=== PATIENT | male | born 1980 | race Caucasian/White ===

== ENCOUNTER 2019-05-31 19:39 | Emergency (ER) | payer SELFPAY ==
[2019-05-31] MEDS ORDERED: WATER FOR INJ,STERILE 10 ML ONE (20:58)
[2019-05-31] MEDS ORDERED: AZITHROMYCIN 250 MG TAB ONE (20:58)
[2019-05-31] MEDS ORDERED: CEFTRIAXONE 1000 MG/VIAL ONE (20:58)
--- NOTE | 2019-05-31 21:41 | ER ---
Nurse's Notes [facility] Name: Homero Macias Age: 38 yrs Sex: Male : 1980 Arrival Date: 05/31/2019 Time: 19:42 Bed 16 Private MD: Diagnosis: Tobacco abuse counseling;Tobacco use;Bronchitis, not specified as acute or chronic;Type 2 diabetes mellitus Presentation: 05/31 20:27 Presenting complaint: Patient states: He has had a cough for the past 3 weeks and he aj1 hasn't been getting better, patient states that he has seen blood in his sputum for the past 2 weeks. Denies fever. Transition of care: patient was not received from another setting of care. Onset of symptoms was May 2019. Risk Assessment: Do you want to hurt yourself or someone else? Patient reports no desire to harm self or others. Initial Sepsis Screen: Does the patient meet any 2 criteria? No. Patient's initial sepsis screen is negative. Does the patient have a suspected source of infection? Yes: Productive cough/pneumonia. Care prior to arrival: None. 20:27 Method Of Arrival: Ambulatory aj 20:27 Acuity: KAMRYN 3 aj1 Triage Assessment: 20:31 General: Appears in no apparent distress. uncomfortable, Behavior is calm, cooperative, aj1 appropriate for age. Pain: Pain currently is 5 out of 10 on a pain scale. Neuro: Level of Consciousness is awake, alert, obeys commands. Cardiovascular: Patient's skin is warm and dry. Respiratory: Airway is patent Respiratory effort is even, unlabored, Respiratory pattern is regular, symmetrical. 21:00 GI: Reports vomiting. rv Historical: - Allergies: 20:31 No Known Allergies; aj1 - Home Meds: 20:31 None [Active]; aj1 - PMHx: 20:31 Diabetes - NIDDM; aj1 - PSHx: 20:31 t1- t3 surgery; plates in ankles; Knee surgery; aj1 - Immunization history:: Flu vaccine is not up to date. - Coronavirus screen:: The patient has NOT traveled to [place], [place], or [place] in the past 14 days. - Social history:: Smoking status: Patient reports the use of cigarette tobacco products, smokes three packs cigarettes per day. - Family history:: not pertinent. - Ebola Screening: : Patient denies travel to an Ebola-affected area in the 21 days before illness onset. Screenin:00 Abuse screen: Denies threats or abuse. Denies injuries from another. Nutritional rv screening: No deficits noted. Tuberculosis screening: No symptoms or risk factors identified. Fall Risk None identified. Assessment: 20:59 General: Appears in no apparent distress. comfortable, Behavior is calm, cooperative. rv Pain: Denies pain. Neuro: Level of Consciousness is awake, alert, obeys commands, Oriented to person, place, time, situation. Cardiovascular: Patient's skin is warm and dry. Respiratory: Airway is patent. GI: Abdomen is flat. Derm: Skin is intact. Vital Signs: 20:31 BP 115 / 80; Pulse 81; Resp 18; Temp 98.3(TE); Pulse Ox 98% on R/A; Weight 124.74 kg; aj1 Height 5 ft. 10 in. (177.80 cm); Pain 5/10; 21:00 BP 121 / 81; Pulse 79; Resp 16; Pulse Ox 97% on R/A; rv 21:54 BP 116 / 76; Pulse 75; Resp 15; Pulse Ox 98% on R/A; rv 20:31 Body Mass Index 39.46 (124.74 kg, 177.80 cm) aj1 ED Course: 19:42 Patient arrived in ED. jg7 20:07 Patient's name was called from ER lobby. No response. aj1 20:30 Triage completed. aj1 20:31 Arm band placed on Patient placed in an exam room. aj1 20:36 Nav Pringle MD is Attending Physician. tobi 20:45 Bob Durant RN is Primary Nurse. rv 21:01 Patient has correct armband on for positive identification. Pulse ox on. NIBP on. rv 21:40 Kwame Maza MD is Referral Physician. tobi 21:44 Chest Pa And Lat (2 Views) XRAY In Process Unspecified. EDMS 21:55 No provider procedures requiring assistance completed. Patient did not have IV access rv during this emergency room visit. Administered Medications: 21:15 Drug: Zithromax 500 mg Route: PO; rv 21:54 Follow up: Response: No adverse reaction rv 21:20 Drug: Rocephin (cefTRIAXone) 1 grams Route: IM; Site: left deltoid; rv 21:53 Follow up: Response: No adverse reaction rv Outcome: 21:40 Discharge ordered by . tobi 21:55 Discharged to home ambulatory, with family. rv 21:55 Condition: good 21:55 Discharge instructions given to patient, family, Instructed on discharge instructions, follow up and referral plans. medication usage, Demonstrated understanding of instructions, follow-up care, medications, Prescriptions given X 3. 21:55 Patient left the ED. rv Signatures: Dispatcher [employer] Sophia Laughlin RN RN ajNav Becerra MD MD cha Vicente, Ronaldo, RN RN Vida Ni jg7
--- NOTE | 2019-05-31 21:41 | EDPHYS ---
Physician Documentation [facility] Name: Homero Macias Age: 38 yrs Sex: Male : 1980 Arrival Date: 05/31/2019 Time: 19:42 Bed 16 Private MD: ED Physician Nav Pringle HPI: 05/31 20:45 This 38 yrs old Male presents to ER via Ambulatory with complaints of tobi COUGHING UP BLOOD, Fever, Vomiting. 20:45 The patient reports fever, not measured (subjective). Onset: The symptoms/episode tobi began/occurred 3 day(s) ago. Modifying factors: there are no obvious modifying factors. Associated signs and symptoms: Pertinent positives: cough, hemoptysis, sinus congestion. Severity of symptoms: At their worst the symptoms were mild moderate in the emergency department the symptoms are unchanged. The patient has not experienced similar symptoms in the past. Historical: - Allergies: 20:31 No Known Allergies; aj1 - Home Meds: 20:31 None [Active]; aj1 - PMHx: 20:31 Diabetes - NIDDM; aj1 - PSHx: 20:31 t1- t3 surgery; plates in ankles; Knee surgery; aj1 - Immunization history:: Flu vaccine is not up to date. - Coronavirus screen:: The patient has NOT traveled to [place], [place], or [place] in the past 14 days. - Social history:: Smoking status: Patient reports the use of cigarette tobacco products, smokes three packs cigarettes per day. - Family history:: not pertinent. - Ebola Screening: : Patient denies travel to an Ebola-affected area in the 21 days before illness onset. ROS: 20:45 Constitutional: Negative for fever, chills, and weight loss, Eyes: Negative for injury, tobi pain, redness, and discharge, ENT: Negative for injury, pain, and discharge, Neck: Negative for injury, pain, and swelling, Cardiovascular: Negative for chest pain, palpitations, and edema, Abdomen/GI: Negative for abdominal pain, nausea, vomiting, diarrhea, and constipation, Back: Negative for injury and pain, : Negative for injury, bleeding, discharge, and swelling, MS/Extremity: Negative for injury and deformity, Skin: Negative for injury, rash, and discoloration, Neuro: Negative for headache, weakness, numbness, tingling, and seizure, Psych: Negative for depression, anxiety, suicide ideation, homicidal ideation, and hallucinations, Allergy/Immunology: Negative for hives, rash, and allergies, Endocrine: Negative for neck swelling, polydipsia, polyuria, polyphagia, and marked weight changes, Hematologic/Lymphatic: Negative for swollen nodes, abnormal bleeding, and unusual bruising. 20:45 Respiratory: Positive for cough, with green sputum, hemoptysis. Exam: 20:45 Constitutional: This is a well developed, well nourished patient who is awake, alert, tobi and in no acute distress. Head/Face: Normocephalic, atraumatic. Eyes: Pupils equal round and reactive to light, extra-ocular motions intact. Lids and lashes normal. Conjunctiva and sclera are non-icteric and not injected. Cornea within normal limits. Periorbital areas with no swelling, redness, or edema. ENT: Nares patent. No nasal discharge, no septal abnormalities noted. Tympanic membranes are normal and external auditory canals are clear. Oropharynx with no redness, swelling, or masses, exudates, or evidence of obstruction, uvula midline. Mucous membranes moist. Neck: Trachea midline, no thyromegaly or masses palpated, and no cervical lymphadenopathy. Supple, full range of motion without nuchal rigidity, or vertebral point tenderness. No Meningismus. Chest/axilla: Normal chest wall appearance and motion. Nontender with no deformity. No lesions are appreciated. Cardiovascular: Regular rate and rhythm with a normal S1 and S2. No gallops, murmurs, or rubs. Normal PMI, no JVD. No pulse deficits. Respiratory: Lungs have equal breath sounds bilaterally, clear to auscultation and percussion. No rales, rhonchi or wheezes noted. No increased work of breathing, no retractions or nasal flaring. Abdomen/GI: Soft, non-tender, with normal bowel sounds. No distension or tympany. No guarding or rebound. No evidence of tenderness throughout. Back: No spinal tenderness. No costovertebral tenderness. Full range of motion. Male : Normal genitalia with no discharge or lesions. Skin: Warm, dry with normal turgor. Normal color with no rashes, no lesions, and no evidence of cellulitis. MS/ Extremity: Pulses equal, no cyanosis. Neurovascular intact. Full, normal range of motion. Neuro: Awake and alert, GCS 15, oriented to person, place, time, and situation. Cranial nerves II-XII grossly intact. Motor strength 5/5 in all extremities. Sensory grossly intact. Cerebellar exam normal. Normal gait. Psych: Awake, alert, with orientation to person, place and time. Behavior, mood, and affect are within normal limits. Vital Signs: 20:31 BP 115 / 80; Pulse 81; Resp 18; Temp 98.3(TE); Pulse Ox 98% on R/A; Weight 124.74 kg; aj1 Height 5 ft. 10 in. (177.80 cm); Pain 5/10; 21:00 BP 121 / 81; Pulse 79; Resp 16; Pulse Ox 97% on R/A; rv 21:54 BP 116 / 76; Pulse 75; Resp 15; Pulse Ox 98% on R/A; rv 20:31 Body Mass Index 39.46 (124.74 kg, 177.80 cm) aj1 MDM: 20:36 Patient medically screened. [facility] 20:47 Data reviewed: vital signs, nurses notes, radiologic studies. [facility] 05/31 21:04 Order name: Glucose, Ancillary Testing; Complete Time: 21:28 EDRI 05/31 21:29 Interpretation: Abnormal. [facility] 05/31 20:45 Order name: Chest Pa And Lat (2 Views) XRAY [facility] 05/31 20:45 Order name: Blood Glucose Level; Complete Time: 20:51 tobi Administered Medications: 21:15 Drug: Zithromax 500 mg Route: PO; rv 21:54 Follow up: Response: No adverse reaction rv 21:20 Drug: Rocephin (cefTRIAXone) 1 grams Route: IM; Site: left deltoid; rv 21:53 Follow up: Response: No adverse reaction rv Disposition: 05/31/19 21:40 Discharged to Home. Impression: Tobacco abuse counseling, Tobacco use, Bronchitis, not specified as acute or chronic, Type 2 diabetes mellitus. - Condition is Stable. - Discharge Instructions: Acute Bronchitis, Adult, Type 2 Diabetes Mellitus, Diagnosis, Adult, How to Use an Inhaler, Steps to Quit Smoking, Smoking Hazards, Upper Respiratory Infection, Adult, Type 2 Diabetes Mellitus, Diagnosis, Adult, [id number]. - Prescriptions for Albuterol Sulfate 90 mcg/actuation - inhale 1-2 puff by INHALATION route every 4-6 hours; 1 Inhaler. Zithromax 500 mg Oral Tablet - take 1 tablet by ORAL route once daily for 5 days; 5 tablet. Pepcid 20 mg Oral Tablet - take 1 tablet by ORAL route every 12 hours for 10 days; 20 tablet. - Medication Reconciliation Form, Thank You Letter, Antibiotic Education, Prescription Opioid Use form. - Follow up: Private Physician; When: 2 - 3 days; Reason: Recheck today's complaints, Continuance of care, Re-evaluation by your physician. Follow up: Kwame Maza; When: 2 - 3 days; Reason: Recheck today's complaints, Continuance of care, Re-evaluation by your physician. - Problem is new. - Symptoms have improved. Signatures: Dispatcher [employer] EDSophia Roman RN RN ajNav Becerra MD MD cha Vicente, Ronaldo, RN RN rv Corrections: (The following items were deleted from the chart) 21:55 21:40 05/31/2019 21:40 Discharged to Home. Impression: Tobacco abuse counseling; rv Tobacco use; Bronchitis, not specified as acute or chronic; Type 2 diabetes mellitus. Condition is Stable. Discharge Instructions: Acute Bronchitis, Adult, How to Use an Inhaler, Steps to Quit Smoking, Smoking Hazards, Upper Respiratory Infection, Adult, Type 2 Diabetes Mellitus, Diagnosis, Adult, Type 2 Diabetes Mellitus, Diagnosis, Adult, [id number]. Prescriptions for Albuterol Sulfate 90 mcg/actuation - inhale 1-2 puff by INHALATION route every 4-6 hours; 1 Inhaler, Zithromax 500 mg Oral Tablet - take 1 tablet by ORAL route once daily for 5 days; 5 tablet. and Forms are Medication Reconciliation Form, Thank You Letter, Antibiotic Education, Prescription Opioid Use. Follow up: Private Physician; When: 2 - 3 days; Reason: Recheck today's complaints, Continuance of care, Re-evaluation by your physician. Follow up: Kwame Maza; When: 2 - 3 days; Reason: Recheck today's complaints, Continuance of care, Re-evaluation by your physician. Problem is new. Symptoms have improved. tobi
[2019-05-31 22:18] VITALS: TEMP 98.3
[2019-05-31 22:19] VITALS: BP 116/76; O2SAT 98
--- NOTE | 2019-06-01 12:43 | RAD REPORT ---
EXAM DESCRIPTION: Lokesh Thakkar And Olegario (2 Views)05/31/2019 9:39 pm CLINICAL HISTORY: Cough COMPARISON: None FINDINGS: The lungs appear clear of acute infiltrate. The heart is normal size IMPRESSION: No acute abnormalities displayed
== END 2019-05-31 21:55 | disposition home or self-care (01) ==
LOC: ER 19:39
DX: J40 Bronchitis, not specified as acute or chronic (principal); E11.9 Type 2 diabetes mellitus without complications; Z72.0 Tobacco use; Z71.6 Tobacco abuse counseling
CPT/HCPCS: 71046; 82947; 96372; 99284

== ENCOUNTER 2022-03-23 18:01 | Emergency (ER) | payer SELFPAY ==
--- NOTE | 2022-03-23 18:28 | EDPHYS ---
Physician Documentation [facility] Name: Homero Macias Age: 41 yrs Sex: Male : 1980 Arrival Date: 03/23/2022 Time: 18:03 Bed 19 Private MD: ED Physician Jonnathan Reyes HPI: 03/23 18:35 This 41 yrs old Male presents to ER via Ambulatory with complaints of Insect Bite, snw Wound Check. 18:35 The patient presents with cellulitis of the medial aspect of left thigh. Description: snw erythematous, tender. Onset: The symptoms/episode began/occurred suddenly, yesterday, and became persistent. Possible cause(s): pt removed tick from area yesterday post hiking the day before. Associated signs and symptoms: Pertinent positives: circular erythema, tender area to left thigh. Severity of symptoms: At their worst the symptoms were moderate. The patient has not experienced similar symptoms in the past. The patient has not recently seen a physician. family with flu-like illness. Historical: - Allergies: 18:12 No Known Allergies; ll1 - PMHx: 18:12 Diabetes - NIDDM; ll1 - PSHx: 18:12 ankle, back, knee SX; ll1 - Immunization history:: Client reports having NOT received the Covid vaccine. - Social history:: Smoking status: Patient reports the use of cigarette tobacco products, smokes one-half pack cigarettes per day. ROS: 18:33 Constitutional: Negative for fever, chills, and weight loss, Eyes: Negative for injury, snw pain, redness, and discharge, ENT: Negative for injury, pain, and discharge, Neck: Negative for injury, pain, and swelling, Cardiovascular: Negative for chest pain, palpitations, and edema, Respiratory: Negative for shortness of breath, cough, wheezing, and pleuritic chest pain, Abdomen/GI: Negative for abdominal pain, nausea, vomiting, diarrhea, and constipation, Back: Negative for injury and pain, : Negative for injury, bleeding, discharge, and swelling, MS/Extremity: Negative for injury and deformity, Neuro: Negative for headache, weakness, numbness, tingling, and seizure, Psych: Negative for depression, anxiety, suicide ideation, homicidal ideation, and hallucinations. 18:33 Skin: Positive for cellulitis, of the medial aspect of left thigh. Exam: 18:30 Constitutional: This is a well developed, well nourished patient who is awake, alert, snw and in no acute distress. Head/Face: Normocephalic, atraumatic. Eyes: Pupils equal round and reactive to light, extra-ocular motions intact. Lids and lashes normal. Conjunctiva and sclera are non-icteric and not injected. Cornea within normal limits. Periorbital areas with no swelling, redness, or edema. ENT: Nares patent. No nasal discharge, no septal abnormalities noted. Tympanic membranes are normal and external auditory canals are clear. Oropharynx with no redness, swelling, or masses, exudates, or evidence of obstruction, uvula midline. Mucous membranes moist. Neck: Trachea midline, no thyromegaly or masses palpated, and no cervical lymphadenopathy. Supple, full range of motion without nuchal rigidity, or vertebral point tenderness. No Meningismus. Chest/axilla: Normal chest wall appearance and motion. Nontender with no deformity. No lesions are appreciated. Cardiovascular: Regular rate and rhythm with a normal S1 and S2. No gallops, murmurs, or rubs. Normal PMI, no JVD. No pulse deficits. Respiratory: Lungs have equal breath sounds bilaterally, clear to auscultation and percussion. No rales, rhonchi or wheezes noted. No increased work of breathing, no retractions or nasal flaring. Abdomen/GI: Soft, non-tender, with normal bowel sounds. No distension or tympany. No guarding or rebound. No evidence of tenderness throughout. Back: No spinal tenderness. No costovertebral tenderness. Full range of motion. MS/ Extremity: Pulses equal, no cyanosis. Neurovascular intact. Full, normal range of motion. Neuro: Awake and alert, GCS 15, oriented to person, place, time, and situation. Cranial nerves II-XII grossly intact. Motor strength 5/5 in all extremities. Sensory grossly intact. Cerebellar exam normal. Normal gait. Psych: Awake, alert, with orientation to person, place and time. Behavior, mood, and affect are within normal limits. 18:30 Skin: Appearance: normal except for affected area, lesion(s), noted, and can be described as erythematous, ring around puncture wound with minimal cellulitis. Vital Signs: 18:13 BP 126 / 90; Pulse 89; Resp 17; Temp 99.8; Pulse Ox 100% ; Weight 97.52 kg; Height 5 ll1 ft. 9 in. (175.26 cm); Pain 1/10; 18:13 Body Mass Index 31.75 (97.52 kg, 175.26 cm) ll1 MDM: 18:18 Patient medically screened. snw 18:32 Data reviewed: vital signs, nurses notes. Data interpreted: Pulse oximetry: on room air snw is 100 %. Interpretation: normal. Counseling: I had a detailed discussion with the patient and/or guardian regarding: the historical points, exam findings, and any diagnostic results supporting the discharge/admit diagnosis, the need for outpatient follow up, to return to the emergency department if symptoms worsen or persist or if there are any questions or concerns that arise at home. Special discussion: Based on the history and exam findings, there is no indication for further emergent testing or inpatient evaluation. I discussed with the patient/guardian the need to see the primary care provider for further evaluation of the symptoms. Administered Medications: 18:44 Drug: Tetanus-Diphtheria Toxoid Adult 0.5 ml {Organizational Development Manager: [employer]. Exp: kr3 08/28/2023. Lot #: [id number]. } Route: IM; Site: left deltoid; 18:48 Follow up: Response: No adverse reaction kr3 18:45 Drug: Doxycycline 100 mg Route: PO; kr3 18:49 Follow up: Response: No adverse reaction kr3 Disposition Summary: 03/23/22 18:27 Discharge Ordered Location: Home snw Condition: Stable snw Diagnosis - PUNCTURE WOUND WITHOUT FOREIGN BODY OF LEFT THIGH snw Followup: snw - With: Emergency Department - When: As needed - Reason: Worsening of condition Followup: snw - With: Private Physician - When: 2 - 3 days - Reason: Recheck today's complaints, Continuance of care, Re-evaluation by your physician Discharge Instructions: - Discharge Summary Sheet snw - Puncture Wound snw - Tick Bite Information, Adult snw Forms: - Medication Reconciliation Form snw - Thank You Letter snw - Antibiotic Education snw - Prescription Opioid Use snw Prescriptions: - Doxycycline Hyclate 100 mg Oral Tablet - take 1 tablet by ORAL route every 12 hours; 20 tablet; Refills: 0, Product snw Selection Permitted - Tramadol 50 mg Oral Tablet - take 1 tablet by ORAL route every 8 hours as needed; 12 tablet; Refills: 0, snw Product Selection Permitted Addendum: 03/28/2022 04:20 Co-signature as Attending Physician, Jonnathan Reyes MD I agree with the assessment and r t plan of care. Signatures: Amanda Pastor, SPACE PHYSICIST-C SPACE PHYSICIST-Csnw Isabela Gotti RN RN ll1 Martha Savage RN RN kr3 Jonnathan Reyes MD MD rt
--- NOTE | 2022-03-23 18:28 | ER ---
Nurse's Notes [facility] Name: Homero Macias Age: 41 yrs Sex: Male : 1980 Arrival Date: 03/23/2022 Time: 18:03 Bed 19 Private MD: Diagnosis: PUNCTURE WOUND WITHOUT FOREIGN BODY OF LEFT THIGH Presentation: 03/23 18:13 Chief complaint: Patient states: 1. Pulled a tick of his L inner thigh yesterday ll1 morning, had gone hiking the day before. Small wound L inner thigh. 2. Cough, congestion, fever, body aches, chills started yesterday also, entire house has flu symptoms. Coronavirus screen: Vaccine status: Patient reports being unvaccinated. Client denies travel out of the [place] in the last 14 days. congestion, cough unrelated to allergies, fatigue, fever, headache, muscle pain, Client presents with at least one sign or symptom that may indicate coronavirus-19. Standard/surgical mask placed on the client. Ebola Screen: Patient denies travel to an Ebola-affected area in the 21 days before illness onset. Initial Sepsis Screen: Does the patient meet any 2 criteria? No. Patient's initial sepsis screen is negative. Does the patient have a suspected source of infection? Yes: Productive cough/pneumonia. Risk Assessment: Do you want to hurt yourself or someone else? Patient reports no desire to harm self or others. Onset of symptoms was March 22, 2022. 18:13 Method Of Arrival: Ambulatory ll1 18:13 Acuity: KAMRYN 4 ll1 Triage Assessment: 18:16 Bite description: bite sustained to left leg by tick, animal information: ll1 vaccination(s) is unknown. General: Appears in no apparent distress. Behavior is calm, cooperative, appropriate for age. Pain: Complains of pain in left leg. Respiratory: Reports cough that is. Derm: Wound noted left leg Reports pain. Historical: - Allergies: 18:12 No Known Allergies; ll1 - PMHx: 18:12 Diabetes - NIDDM; ll1 - PSHx: 18:12 ankle, back, knee SX; ll1 - Immunization history:: Client reports having NOT received the Covid vaccine. - Social history:: Smoking status: Patient reports the use of cigarette tobacco products, smokes one-half pack cigarettes per day. Screenin:46 Abuse screen: Denies threats or abuse. Nutritional screening: No deficits noted. kr3 Tuberculosis screening: No symptoms or risk factors identified. Fall Risk None identified. Assessment: 18:20 General: Appears in no apparent distress. comfortable, Behavior is calm, appropriate kr3 for age. 18:46 Derm: Skin is at puncture site is red. kr3 18:47 Derm: Skin is intact, open wound at puncture site. kr3 Vital Signs: 18:13 BP 126 / 90; Pulse 89; Resp 17; Temp 99.8; Pulse Ox 100% ; Weight 97.52 kg; Height 5 ll1 ft. 9 in. (175.26 cm); Pain 1/10; 18:13 Body Mass Index 31.75 (97.52 kg, 175.26 cm) ll1 ED Course: 18:03 Patient arrived in ED. as 18:10 Amanda Pastor FNP-C is [facility]. aa5 18:10 Jonnathan Reyes MD is Attending Physician. aa5 18:12 Arm band placed on. ll1 18:15 Bed in low position. Call light in reach. Side rails up X 1. kr3 18:16 Triage completed. ll1 18:28 Martha Savage, KVNG is Primary Nurse. kr3 18:46 No provider procedures requiring assistance completed. Patient did not have IV access kr3 during this emergency room visit. Administered Medications: 18:44 Drug: Tetanus-Diphtheria Toxoid Adult 0.5 ml {General Warehouse Associate: [employer]. Exp: kr3 08/28/2023. Lot #: [id number]. } Route: IM; Site: left deltoid; 18:48 Follow up: Response: No adverse reaction kr3 18:45 Drug: Doxycycline 100 mg Route: PO; kr3 18:49 Follow up: Response: No adverse reaction kr3 Medication: 18:48 Vaccine Information Statement (VIS) provided today. Questions and/or concerns kr3 addressed. VIS edition date: December 12, 2020. Outcome: 18:27 Discharge ordered by . snw 18:47 Discharged to home ambulatory. kr3 18:47 Condition: stable 18:47 Discharge instructions given to patient, Instructed on discharge instructions, follow up and referral plans. medication usage, Demonstrated understanding of instructions, follow-up care, medications, Prescriptions given X 2. 18:48 Patient left the ED. kr3 Signatures: Amanda Pastor, PHOTO EDITOR-C PHOTO EDITOR-Csnw Katerin Reyes Audri, RN RN aa5 Isabela Gotti RN RN ll1 Martha Savage RN RN kr3
[2022-03-23] MEDS ORDERED: DOXYCYCLINE 100 MG CAP PO ONE (18:35)
[2022-03-23] MEDS ORDERED: TETANUS & DIPHTHERIA TOX,ADULT 0.5 ML VIAL ONE (18:35)
[2022-03-23 18:53] VITALS: BP 126/90; TEMP 99.8; O2SAT 100
== END 2022-03-23 18:48 | disposition home or self-care (01) ==
LOC: ER 18:01
DX: S71.132A Puncture wound without foreign body, left thigh, initial encounter (principal); F17.210 Nicotine dependence, cigarettes, uncomplicated; Z23 Encounter for immunization
CPT/HCPCS: 90471; 90714; 99283